=== PATIENT | male | born 1955 | race Two or more races ===

== ENCOUNTER 2017-03-01 10:36 | Emergency (ER) | payer OTHER ==
[~2017-03-01 10:36] MED LIST: GLIPIZIDE10 MG PO; LANTUS; PRO40 PO; PROPANOLOL
[2017-03-01 15:38] VITALS: BP 160/60
== END 2017-03-01 12:30 | disposition home or self-care (01) ==
LOC: ED 10:36
DX: T18.5XXA Foreign body in anus and rectum, initial encounter (principal); I10 Essential (primary) hypertension; E11.9 Type 2 diabetes mellitus without complications; X58.XXXA Exposure to other specified factors, initial encounter; Y93.89 Activity, other specified; Y99.8 Other external cause status; Y92.89 Other specified places as the place of occurrence of the external cause